=== PATIENT | female | born 1945 | race Caucasian/White ===

== ENCOUNTER 2021-10-15 10:34 | Outpatient (REF) | payer MEDICARE, SELFPAY ==
[2021-10-15 10:47] VITALS: BP 141/81; PULSE 83; RESP 16; TEMP 36.3; O2SAT 98
[2021-10-15 10:48] VITALS: BMI 32.9
== END 2021-10-15 10:35 | disposition home or self-care (01) ==
LOC: HO.MS 10:34
PROVIDERS: PCP Nurse Practitioner Family; Visit Provider Ophthalmology
PROC: (CPT 66821; principal; 2021-10-15 12:30)
DX: H26.492 Other secondary cataract, left eye (principal); Z83.511 Family history of glaucoma; J45.909 Unspecified asthma, uncomplicated; Z79.899 Other long term (current) drug therapy; Z88.2 Allergy status to sulfonamides; Z87.891 Personal history of nicotine dependence
CPT/HCPCS: 66821

== ENCOUNTER 2024-02-10 10:37 | Outpatient (AMB) | payer MEDICARE, SELFPAY ==
--- NOTE | 2024-02-10 10:45 | AM.OFFWIN_ITS ---
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, Records in chart Intake Note: pt is here to get a refill for her inhaler pt says she has a chest cold and needs it refilled she has [employer] appt with Dr Alcala 09/16 the inhaler she needs refilled is albuterol sulfate HFA 90 mcg Allergies Sulfa (Sulfonamide Antibiotics) [SULFA (SULFONAMIDE ANTIBIOTICS)] Allergy (Unknown, Unverified 02/10/24 11:10) UNKNOWN Medication List - Last Reconciled 02/10/24 by Regis Cardenas MD albuterol sulfate 90 mcg/actuation 2 puffs inhalation Q6H atorvastatin 40 mg PO DAILY citalopram 20 mg PO DAILY lorazepam mg PO lorazepam 1 mg PO DAILY PRN 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 patient is in between primary care providers. She has reactive airway disease and uses albuterol. She is out of the medication and would like a refill. Physical Exam Vital Signs: Last Vital Signs Temp 98.3 F 02/10/24 10:46 Pulse 60 02/10/24 10:46 BP 118/72 02/10/24 10:46 Pulse Ox 98 02/10/24 10:46 Oxygen Delivery Method Room Air 02/10/24 10:46 BMI result Body Mass Index 32.1 Const General: cooperative and healthy appearing Nutritional Appearance: well nourished Orientation/consciousness: patient oriented x3 Limitations: no limitations HEENT Head: Yes normal to inspection Eyes General: appearance normal, both eyes and all related structures Neck Neck: Yes normal visual inspection Chest Chest palpation & inspection: normal palpation of entire chest wall Resp Effort & Inspection: normal respiratory effort Neuro General: patient oriented x3 Assessment & Plan Assessment & Plan (1) Reactive airway disease: Code(s): J45.909 - Unspecified asthma, uncomplicated Plan: Albuterol prescription called in. Medications: New albuterol sulfate 90 mcg/actuation 2 puffs inhalation Q6H 6.7 grams 0RF Coding Level of Care Code Est Pt Level 3 (05251) Diagnoses Reactive airway disease J45.909
[2024-02-10 10:46] VITALS: BP 118/72; PULSE 60; TEMP 36.8; O2SAT 98; BMI 32.1
== END 2024-02-10 11:42 | disposition home or self-care (01) ==
PROVIDERS: Visit Provider Internal Medicine
DX: J45.909 Unspecified asthma, uncomplicated (principal)
CPT/HCPCS: 99203

== ENCOUNTER 2024-10-25 09:51 | Outpatient (AMB) | payer MEDICARE, SELFPAY ==
[2024-10-25 10:03] VITALS: BP 110/70; PULSE 73; O2SAT 99; BMI 31.5
--- NOTE | 2024-10-25 10:03 | A.OFFPC_ITS ---
Vital Signs 10/25/24 10:03 Height 5 ft 2 in Weight 172 lb BMI 31.5 BP 110/70 Blood Pressure Location Rt brachial Position Sitting Pulse 73 Pulse Source Pulse Oximeter Pulse Oximetry (%) 99 Oxygen Delivery Method Room Air Intake Visit Reasons: New Patient to est care/c/o Lt ear blocked Intake Note: Pt is here today as a New Patient to est care/c/o Lt ear blocked Allergies Sulfa (Sulfonamide Antibiotics) [SULFA (SULFONAMIDE ANTIBIOTICS)] Allergy (Unknown, Unverified 10/25/24 10:26) UNKNOWN Medication List - Last Reconciled 10/25/24 by Michelle Alcala MD albuterol sulfate 90 mcg/actuation 2 puffs inhalation Q6H atorvastatin 40 mg PO DAILY citalopram 20 mg PO DAILY cyclobenzaprine 10 mg PO BEDTIME ibuprofen 800 mg PO BID PRN lorazepam mg PO Tobacco use date assessed: 10/25/24 Fall risk assessment: No Falls in past year Last assessed Fall Risk: 10/25/24 Dental Screening Dental Screen Date: 10/25/24 Did you have a dental visit in the last 12 months?: Yes Did you have a dental problem in the last 6 months where you did not have access to dental care?: No Was dental information given to patient?: Patient has dentist HPI HPI Comments History of Present Illness Details The patient is a 79-year-old female, new to practice , presenting with complaints of left ear blockage and accompanying nasal congestion predominantly on the left side, especially upon waking in the morning. These symptoms have been intermittent for approximately one month. The patient also describes episodes of balance disturbance, especially when changing positions. She reports taking precautionary measures when rising from a seated position to avoid dizziness. The patient denies any associated vertigo when turning in bed or any sensation of room spinning. Has Bronchial asthma, she uses Albuterol without steroids , and reports no recent exacerbations. 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 The patient also mentioned receiving MRI scans to manage her back condition. She has been on atorvastatin for dyslipidemia and takes citalopram regularly for anxiety. Additionally, she has a known allergy to sulfa drugs from childhood, though she has not had any recent reactions. [facility] Medical History (Updated 11/01/24 @ 02:29 by Michelle Alcala MD) Mild intermittent asthma Generalized anxiety disorder Dyslipidemia Lumbar degenerative disc disease Surgical History (Updated 10/25/24 @ 10:41 by Michelle Alcala MD) Hx of cataract surgery Hx of tubal ligation Hx of cervical spine surgery Family History (Updated 10/25/24 @ 10:43 by Michelle Alcala MD) Father Leukemia Mother Nephrolithiasis Brother Bronchial asthma Social History Housing: House Patient Tobacco Use Status: Former Tobacco user e-Cigarette/Vaping Use: Never Used service: No Current occupational status: retired Cognitive needs: No Hearing needs: Yes Vision needs: Yes Questionnaire PHQ-9 Over the last 2 weeks, how often have you been bothered by any of the following problems? 1. Little interest or pleasure in doing things: not at all 2. Feeling down, depressed, or hopeless: not at all 3. Trouble falling or staying asleep, or sleeping too much: not at all 4. Feeling tired or having little energy: not at all 5. Poor appetite or overeating: not at all 6. Feeling bad about yourself - or that you are a failure or have let yourself or your family down: not at all 7. Trouble concentrating on things, such as reading the newspaper or watching television: not at all 8. Moving or speaking so slowly that other people could have noticed. Or the opposite - being so fidgety or restless that you have been moving around a lot more than usual: not at all 9. Thoughts that you would be better off or of hurting yourself in some way: not at all Total score: 0 Depression Screening Interpretation: Negative Depression Screening Done: Yes 66823 - PHQ-9 Billing: Yes Source: Developed by Drs. Hubert Worley, Jenny Woodard, Moe Dixon and colleagues, with an educational kami from [employer] Thrive Questionnaire Date Thrive assessed: 10/25/24 I am a: Patient What is your living situation today?: I have a steady place to live Within the past 12 months, did the food you bought not last and you didn't have the money to get more?: Never true Within the past 12 months, did you worry whether your food would run out before you got money to buy more?: Never true Do you have trouble paying for medicines?: No Do you have trouble getting transportation to medical appointments?: No Do you have trouble paying your heating and electricity bill?: No Do you have trouble taking care of your child, family member or friend?: No Do you have trouble with day-to-day activities such as bathing, preparing meals, shopping, managing finances, etc.?: No Are you currently unemployed and looking for a job?: No Are you interested in more education?: No THRIVE Score: 0 TRACY-7 AMB Questionnaire TRACY-7 Date TRACY - 7 assessed: 10/25/24 Feeling nervous, anxious, or on edge: 0 = Not at all Not being able to stop or control worryin = Not at all Worrying too much about different things: 0 = Not at all Trouble relaxin = Not at all Being so restless that it is hard to sit still: 0 = Not at all Becoming easily annoyed or irritable: 0 = Not at all Feeling afraid as if something awful might happen: 0 = Not at all Total TRACY-7 score (0-4 normal; 5-9 mild; 10-14 moderate; 15-21 severe): 0 Source: Developed by Drs. Hubert Worley, Jenny Woodard, Moe Dixon and colleagues, with an educational kami from [employer] TRACY-7 Assessment Billing TRACY-7 Assessment Tool: TRACY-7 Assessment 80210 ACT Questionnaire In the past 4 weeks, how much of the time did your asthma keep you from getting as much done at work, school or at home?: None of the time During the past 4 weeks, how often have you had shortness of breath?: Not at all During the past 4 weeks, how often did your asthma symptoms wake you up at night or earlier than usual in the morning?: Not at all During the past 4 weeks, how often have you had to use your rescue inhaler or nebulizer medication?: Once a week or less How would you rate your asthma control during the past 4 weeks?: Well controlled ACT Interpretation: Negative Score: 23 Review of Systems Const Denies body aches, Denies fatigue, Denies fever(s), Denies headache(s) and Denies weakness Eyes Denies change in vision, Denies eye discharge and Denies itchy eyes ENT Denies headache(s), Reports hearing loss (left ear feels blocked ), Reports nasal congestion, Denies post nasal drip, Denies sinus pain and Denies sore th roat Card Denies chest pain, Denies lightheadedness, Denies palpitations and Denies dyspnea Resp Denies chest congestion, Denies cough, Denies dyspnea and Denies wheezing GI Denies abdominal pain, Denies change in bowel habits and Denies heartburn Denies hematuria, Denies urinary frequency, Denies dysuria and Denies urinary urgency Musc Reports no additional complaints Skin/Breast Denies breast pain, Denies breast mass, Denies lesions and Denies rash Neuro Denies headache(s) and Denies weakness Psych Reports no additional complaints Endo Denies fatigue, Denies polydipsia, Denies polyuria and Denies palpitations Arnold/Lymph Denies easy bruising Aller/Immun Denies itchy eyes, Denies seasonal rhinorrhea and Denies wheezing Physical exam (Primary Care) Vital Signs: Last Vital Signs Pulse 73 10/25/24 10:03 BP 110/70 10/25/24 10:03 Pulse Ox 99 10/25/24 10:03 Oxygen Delivery Method Room Air 10/25/24 10:03 BMI result Body Mass Index 31.5 Tobacco/Smoking Status: Tobacco use Status Tobacco use date assessed 10/25/24 10/25/24 10:14 Patient Tobacco Use Status Former Tobacco user 10/25/24 10:14 e-Cigarette/Vaping Use Never Used 10/25/24 10:14 PHQ-9: PHQ-9 Score PHQ-9: Total score 0 10/25/24 11:02 Depression Screening Interpretation: Negative Thrive Assessment: Date of Thrive Assessment Date Thrive assessed 10/25/24 10/25/24 10:14 Const General: comfortable, no acute distress and alert Orientation/consciousness: patient oriented x3 Limitations: no limitations HENMT Ears: external ears normal, TM's normal bilaterally and EAC's normal General nose exam: Normal external nose present and No nasal discharge present Mouth: Normal oral and palatal mucosa present, oropharynx normal and moist mucous membranes Eyes General: appearance normal, both eyes and all related structures Conjunctivae: conjunctivae normal Sclerae: sclerae normal Pupils: Equal, round and reactive pupils present EOM: EOMs intact bilaterally Neck Neck: Yes full ROM, Yes no lymphadenopathy and Yes supple Resp Effort & Inspection: normal respiratory effort and able to speak in complete sentences Auscultation: clear to auscultation bilaterally Cardio Rate: regular rate Rhythm: regular rhythm Heart sounds: S1 normal heart sound present and S2 normal heart sound present GI Palpation (GI): Soft to palpation, nontender and no masses Auscultation: normal bowel sounds Back/Spine/Pelvis Back: No back tenderness Skin General skin exam: no rashes or lesions noted Neuro General: patient oriented x3, gait normal, tone normal, moves all extremities, Normal light touch and pain sensation and no focal motor deficits Cranial nerves: Yes CN's II-XII intact bilaterally and Yes Equal, round and reactive pupils present Cognition (Neuro): normal cognition Extrem General: Yes full ROM, Yes no joint enlargement, Yes no clubbing, cyanosis or edema and Yes no calf tenderness Psych Appearance: grossly normal and well kempt Mental Status: mental status grossly normal Speech and movement: Normal speech and movement present Affect: normal affect Attitude: cooperative Thought process: Normal thought process present Thought content: Normal thought content present Immunizations pneumoc 20-jonathon conj-dip cr(PF) 0.5 mL IM syringe Performing Provider: Michelle Alcala MD Performing Location: [facility] Administered by: Rhonda Yanez CMA on 10/25/24 11:01 Dose Route Admin Location Dispensed Lot Number Expiration Date [employer] Operator 0.5 mL IM Left Deltoid 0.5 mL [id number] 03/23/26 6150-8879-21 [employer] VIS Given Date VIS Provided VIS Publication Date 10/25/24 Single Vaccine 21 Eligibility Eligibility Date Funding Source Not [facility] Eligible 10/25/24 Private Coding Level of Care Code New Pt Level 3 (20600) Complex EM visit Add On G2211 Diagnoses Benign paroxysmal positional vertigo, unspecified laterality H81.10 Laterality: unspecified laterality Mild intermittent asthma without complication J45.20 Asthma complication type: uncomplicated Generalized anxiety disorder F41.1 Dyslipidemia E78.5 Degeneration of intervertebral disc of lumbar region, unspecified whether pain present M51.369 Disc-related pain type: unspecified whether pain present Additional Codes PHQ-9 - 49123 - PHQ-9 Billing: Yes ([id number]) TRACY-7 Assessment Billing - TRACY-7 Assessment Tool: TRACY-7 Assessment 95836 ([id number]) Asthma Control Questionnaire - ACT Interpretation: Negative ([id number]) Assessment & Plan Assessment & Plan (1) Benign positional vertigo: Code(s): H81.10 - Benign paroxysmal vertigo, unspecified ear Qualifiers: Laterality: unspecified laterality Qualified Code(s): H81.10 - Benign paroxysmal vertigo, unspecified ear (2) Mild intermittent asthma: Code(s): J45.20 - Mild intermittent asthma, uncomplicated Category: Medical Qualifiers: Asthma complication type: uncomplicated Qualified Code(s): J45.20 - Mild intermittent asthma, uncomplicated (3) Generalized anxiety disorder: Code(s): F41.1 - Generalized anxiety disorder Category: Medical (4) Dyslipidemia: Code(s): E78.5 - Hyperlipidemia, unspecified Category: Medical (5) Lumbar degenerative disc disease: Comment: sees [facility] , Dr Green , gets steroid epidural steroid injections Code(s): M51.369 - Other intervertebral disc degeneration, lumbar region without mention of lumbar back pain or lower extremity pain Category: Medical Qualifiers: Disc-related pain type: unspecified whether pain present Qualified Code(s): M51.369 - Other intervertebral disc degeneration, lumbar region without mention of lumbar back pain or lower extremity pain Plan - Recommend Jemma D or Claritin D to manage nasal congestion as an [id number] option. - Referral for physical therapy to perform the Juan Ramon maneuver if symptoms persist indicating potential benign paroxysmal positional vertigo. - Continue Albuterol for asthma management. Discussed the absence of steroid inhaler use. - Continue atorvastatin for dyslipidemia. - currently followed at [facility] for her back pain - Refilled prescription for citalopram, with reinforcement to continue regular dosing for anxiety management. - Administer Prevnar 20 for pneumococcal vaccination. Discussed the need for an additional dose of the shingles vaccine and suggested RSV vaccination. Patient was informed and verbally consented to the use of an ambient scribe for clinic note documentation during this visit. Orders: Orders Aspartate Amino Transferase 10/25/24 E78.5 - Hyperlipidemia, unspecified, F41.1 - Generalized anxiety disorder, J45.20 - Mild intermittent asthma, uncomplicated, M51.369 - Other intervertebral disc degeneration, lumbar region without mention of lumbar back pain or lower extremity pain, Z13.1 - Encounter for screening for diabetes mellitus, Z78.0 - Asymptomatic menopausal state PT Evaluation and Treatment 10/25/24 H81.10 - Benign paroxysmal vertigo, unspecified ear Alanine Aminotransferase 10/25/24 E78.5 - Hyperlipidemia, unspecified, F41.1 - Generalized anxiety disorder, J45.20 - Mild intermittent asthma, uncomplicated, M51.369 - Other intervertebral disc degeneration, lumbar region without mention of lumbar back pain or lower extremity pain, Z13.1 - Encounter for screening for diabetes mellitus, Z78.0 - Asymptomatic menopausal state Basic Metabolic Panel Fasting 10/25/24 E78.5 - Hyperlipidemia, unspecified, F41.1 - Generalized anxiety disorder, J45.20 - Mild intermittent asthma, uncomplicated, M51.369 - Other intervertebral disc degeneration, lumbar region without mention of lumbar back pain or lower extremity pain, Z13.1 - Encounter for screening for diabetes mellitus, Z78.0 - Asymptomatic menopausal state Lipid Panel 10/25/24 E78.5 - Hyperlipidemia, unspecified, F41.1 - Generalized anxiety disorder, J45.20 - Mild intermittent asthma, uncomplicated, M51.369 - Other intervertebral disc degeneration, lumbar region without mention of lumbar back pain or lower extremity pain, Z13.1 - Encounter for screening for diabetes mellitus, Z78.0 - Asymptomatic menopausal state Vitamin D 25-OH Total 10/25/24 E78.5 - Hyperlipidemia, unspecified, F41.1 - Generalized anxiety disorder, J45.20 - Mild intermittent asthma, uncomplicated, M51.369 - Other intervertebral disc degeneration, lumbar region without mention of lumbar back pain or lower extremity pain, Z13.1 - Encounter for screening for diabetes mellitus, Z78.0 - Asymptomatic menopausal state Pneumococcal 20 Immunization 10/25/24 Z23 - Encounter for immunization
== END 2024-10-25 11:04 | disposition home or self-care (01) ==
PROVIDERS: PCP Internal Medicine; Visit Provider Internal Medicine
DX: H81.10 Benign paroxysmal vertigo, unspecified ear (principal); J45.20 Mild intermittent asthma, uncomplicated; F41.1 Generalized anxiety disorder; E78.5 Hyperlipidemia, unspecified; M51.369 Other intervertebral disc degeneration, lumbar region without mention of lumbar back pain or lower extremity pain

== ENCOUNTER → 2024-10-25 09:51 | Outpatient (BNVA) | payer MEDICARE, SELFPAY | PROVIDERS: Visit Provider Internal Medicine | DX: H81.10 Benign paroxysmal vertigo, unspecified ear (principal); Z23 Encounter for immunization; J45.20 Mild intermittent asthma, uncomplicated; F41.1 Generalized anxiety disorder; E78.5 Hyperlipidemia, unspecified; M51.369 Other intervertebral disc degeneration, lumbar region without mention of lumbar back pain or lower extremity pain | CPT/HCPCS: 90471; 90677; 96127; 96160; 99202 ==

== ENCOUNTER 2024-12-10 08:46 | Outpatient (RCR) | payer MEDICARE, SELFPAY ==
[2024-12-10 08:53] VITALS: BP 108/70
--- NOTE | 2024-12-10 10:01 | MHC.PT.EP ---
[facility] [place] Office [place] Office [place] Office [address] Momo Rodriguez [address] [phone] F: [phone] F: [phone] F: [phone] F: [phone] Physical Therapy Plan of Care Date of Evaluation: Date of Surgery: Diagnosis: BPPV Assessment: 79 y/o female referred to PT with BPPV. Reports dizziness all the time, some days are worse than others. Describes dizziness 'like everything is swirling' and 'my head feels full on the top and it feels weird. It is provoked by moving head quickly side to side, bending, and standing up quickly. Sx last for a few seconds. Of note, she has L LE weakness d/t DDD and is managed by orthopedics, but states this has also effected her balance. Examination shows normal smooth pursuits/ saccades, impaired static and dynamic balance, negative VBI, 17/24 DGI, and she was negative for BPPV. At this time, she presents with vestibular hypofunction and she will benefit from PT to address balance especially with head turns. Also recommended she f/u with MD and possibly ENT as her L ear feels clogged, full, and has whooshing sound. We will trial every other week to progress HEP and also pt is traveling soon. 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 Manual therapy to restore motion and function. Therapeutic exercise to improve strength and flexibility. Neuromuscular re-education for posture and balance. Therapeutic activities to return to functional activities of daily living. Electronically signed by: Rand Leigh PT Please sign and return to therapist. Thank you for your referral.
--- NOTE | 2025-01-03 13:28 | MHC.PT.DC ---
[facility] [place] Office [place] Office [place] Office [address] Momo Rodriguez [address] [phone] F: [phone] F: [phone] F: [phone] F: [phone] Physical Therapy Discharge Report Diagnosis: BPPV Date of Surgery: Date of Evaluation: 12/10/24 Date of Discharge: 01/03/25 Treatments to Date: 1 Cancellations to Date: 0 No Shows to Date: 1 Discharge Status: Discharge Summary: Pt attended initial evaluation and was negative for BPPV. However she demonstrates impaired balance. PT was recommended for balance as well as f/u wiht ENT d/t ear feeling clogged with 'whooshing'. She did not attend further visits and chart is d/c at this time. Electronically signed by: Rand Leigh PT Please sign and return to therapist. Thank you for your referral.
== END 2025-01-03 13:28 | disposition home or self-care (01) ==
LOC: HO.PTCHIC 08:46
PROVIDERS: PCP Internal Medicine; Visit Provider Internal Medicine
DX: H81.10 Benign paroxysmal vertigo, unspecified ear (principal)
CPT/HCPCS: 97112; 97162

== ENCOUNTER 2024-12-20 08:16 | Outpatient (REF) | payer MEDICARE, SELFPAY ==
[2024-12-20 11:08] LABS: Alanine Aminotransferase 17 U/L (0-31); Anion Gap 11 (12-20); Aspartate Amino Transferase 23 U/L (5-31); Blood Urea Nitrogen 10 mg/dL (9-16); Calcium 9.8 mg/dL (8.4-10.2); Carbon Dioxide 25 mmol/L (22-29); Chloride 111 mmol/L (96-108); Cholesterol 149 mg/dL (<200); Estimated Glomerular Filt Rate 56; Glucose Fasting 126 mg/dL (60-99); HDL Cholesterol 39 mg/dL (>40); LDL Cholesterol Calculated 92 mg/dL (<100); Potassium 4.2 mmol/L (3.3-5.1); Sodium 143 mmol/L (135-145); Triglycerides 93 mg/dL (<150); Vitamin D 25-OH Total 22.9 ng/mL (>30)
== END 2024-12-20 08:17 | disposition home or self-care (01) ==
LOC: HO.HMGCLDS 08:16
PROVIDERS: PCP Internal Medicine; Visit Provider Internal Medicine
DX: J45.20 Mild intermittent asthma, uncomplicated (principal); F41.1 Generalized anxiety disorder; E78.5 Hyperlipidemia, unspecified; M51.369 Other intervertebral disc degeneration, lumbar region without mention of lumbar back pain or lower extremity pain; Z13.1 Encounter for screening for diabetes mellitus; Z78.0 Asymptomatic menopausal state
CPT/HCPCS: 36415; 80048; 80061; 82306; 84450; 84460

== ENCOUNTER → 2024-12-29 07:51 | Outpatient (BNVA) | payer MEDICARE, SELFPAY | PROVIDERS: PCP Internal Medicine; Visit Provider Internal Medicine | DX: E78.5 Hyperlipidemia, unspecified (principal); E55.9 Vitamin D deficiency, unspecified; J45.20 Mild intermittent asthma, uncomplicated; F41.1 Generalized anxiety disorder; R73.01 Impaired fasting glucose | CPT/HCPCS: 83036; 96127; 99212 ==

== ENCOUNTER 2025-06-15 14:14 | Outpatient (AMB) | payer MEDICARE, SELFPAY ==
--- OUTSIDE RECORDS SUMMARY | 2025-04-11 06:40 | XMS_ITS ---
Author Organization [facility] Address [address] [place] [address] [place] [address] Care Team Providers Care Recapper Name Role Phone Cari LEWIS, Michelle Primary Care Provider Genesis Cordero Jr, Harman Nava REASON FOR VISIT colon screening Encounters Encounter Location Date Provider Diagnosis [facility] [address] [place] [address] [place] [address] 04/11/2025 Harman oCrdero Jr Plan Of Treatment No Information Progress Notes * SHAHIDA CLIFTONANDOB: (79 yo F)Acc No.[id number]:04/11/2025 Progress Notes Patient: SHAHIDA LEVI Provider: Thelma Cordero MD :1945 A ge:79 Y S ex:Female Date:04/11/2025 Address:[facility] [address] [id number] Pcp:Michelle Alcala MD Subjective: * Chief Complaints: * 1 . Colon screening. * Medical History: Objective: * Vitals: Assessment: Plan: * Treatment: * * The named appointment provid er may or may not be the originator of this progress note, and it is not deemed complete until electronically signed by the appointment provider. Sign off status: Pending * Provider: Thelma Cordero MD Date: 0 04/11/2025 Generated for Printi ng/Faxing/eTransmitting on: 0 06/15/2025 02:55 PM EDT
--- OUTSIDE RECORDS SUMMARY | 2025-06-15 14:55 | XMS_ITS | Patient Health Record ---
[facility] Kimberly Guzmanley Address [address] [place] [address] Care Team Providers Care Trekking Guide Name Role Phone Cari LEWIS, Michelle Meeks Primary Care Provider Un available Laura Jarrell Unavailable [phone] Allergies Allergen (clinical drug ingredient) Drug/Non Drug Allergy documented on EMR Reaction Allergy Type Onset Date Status sulfamethoxazole / trimethoprim Bactrim can't remember Drug Allergy Active Reason For Referral No Information Medications Medication SIG (Take, Route, Frequency, Duration) Notes Start Date End Date Status Flovent HFA 110 MCG/ACT 1 puff Inhalatio n Twice a day Unknown Simvastatin 40 MG 1 tablet every eveni ng Orally Once a day; Duration: 30 day(s) Unknown Citalopram Hydrobromide 20 MG 1 tablet Orally Once a day; Duration: 30 day(s) Unknown Tricor 145 MG 1 tablet Orally Once a day; Duration: 30 day(s) Unknown Citalopram & Diet Manage Prod Active Atorvastatin Calcium 40 MG 1 tablet Oral ly Once a day Active Albuterol Sulfate HFA 108 (90 Base) MCG/ACT 2 puffs as needed Inhalation every 4 hrs Unknown Ibuprofen 200 MG 1 tablet as needed Orally every 6 hrs Unknown Vitamin D 1000 UNIT 1 tablet Orally Once a day; Duration: 30 day(s) Unknown Flonase 50 MCG/ACT 2 sprays Nasally Onc e a day; Duration: 30 day(s) Unknown Social History Tobacco Use: Social History Observation Description Date Details (start date - stop date) Never Smoker NA - NA Tobacco use other than smoking: Question Answer Notes Are you an other tobacco user? No Tobacco Control (Standard) Question Answer Notes Tobacco use: Nonsmoker Additional Findings: Tobacco non-user Current no nsmoker AUDIT-C (Standard) Question Answer Notes Did you have a drink contain ing alcohol in the past year? Yes How often did you have a dri nk containing alcohol in the past year? Declined to specify (0 point) How many drinks did you have on a typical day when you were drinking in the past year? Declined to specify (0 point) How often did you have six o r more drinks on one occasion in the past year? Declined to specify (0 point) Points 0 Interpretation Negative Problems Problem Type SNOMED Code ICD Code Onset Dates Problem Status W/U Status Risk Notes Problem Acquired hammer toe of right foot ([id number]) Other hammer toe(s) (acquired), right foot (M20.41) Active confirmed Problem Localized, primary osteoarthritis of the ankle and/or foot (235962707) Arthritis of joint of lesser toe, right (M19.071) Active confirmed Vital Signs Blood pressure diastolic 90 mm Hg 04/28/2025 Height 5ft 1in in 04/28/2025 Blood pressure systolic 128 mm Hg 04/28/2025 Weight 160 lbs 04/28/2025 BMI 30.23 kg/m2 04/28/2025 Encounters Encounter Location Date Provider Diagnosis [facility] [address] [phone] 04/28/2025 Laura Jarrell Pain in right toe(s) M79.674 ; Other hammer toe(s) (acquired), right foot M20.41 ; Arthritis of joint of lesser toe, right M19.071 and Subluxation of metatarsophalangeal joint of toe, initial encounter S93.149A [facility] [address] [phone] 02/17/2025 Laura Jarrell Assessments Encounter Date Diagnosis (ICD Code) Assessment Notes Treatment Notes Treatment Clinical Notes Section Notes 04/28/2025 Pain in right toe(s) (ICD-10 - M79.674) 04/28/2025 Other hammer toe(s) (acquired), right foot (ICD-10 - M20.41) 04/28/2025 Arthritis of joint o f lesser toe, right (ICD-10 - M19.071) 04/28/2025 Subluxation of metatarsophalangeal joint of toe, initial encounter (ICD-10 - S93.149A) Plan Of Treatment Pending Test Test Name Order Date X ray : Foot, right 3V 04/28/2025 Insurance Providers Payer Name Payer Address Payer Phone Subscriber Number Group Number Insured Name Patient Relationship to Insured Coverage Start Date Coverage End Date Medicare National [employer] [address] [place] [address] [id number] [place], [place] Self - patient is the insured 2 [employer] [address] [place] [address] [id number] [place], [place] Self - patient is the insured Medical (General) History Medical History History ICD Code hyperlipidemia depression anxiety irritable bowel syndrome cataracts asthma - mild intermittent neck pain pneumonia asthma Back,Hip,and Knee pain CAD (Cholesterol) Depression Measles Mumps Chicken pox Surgical History Surgery Date(Month/Year) cervic surgery
--- OUTSIDE RECORDS SUMMARY | 2025-06-15 14:55 | XMS_ITS | Clinical Summary ---
Author Organization [facility] Address [address] [place] [phone] Phone Care Team Providers Care Lockstitch Collar Setter Name Role Phone Harman Cordero MD Unavailable Unknown, Unknown Primary Care Provider Genesis brower Allergies Active Allergy Reactions Criticality Noted Date Comments Sulfa (Sulfonamide Antibiotics) Unknown 09/25 ?? reaction Medications mometasone (ELOCON) 0.1 % ointment Apply 0.1 application topically 2 (two) times a day. 1 09/25/20 17 Active albuterol 2.5 mg /3 mL (0.083 %) nebulizer solutionIndication s:Mild asthma Take 3 mL (2.5 mg total) by nebulization every 4 (four) hours as needed. 150 mL 10/23/20 21 Active albuterol 90 mcg/actuation inhalerIndications :Mild asthma Inhale 2 puffs into the lungs every 4 (four) hours as needed for wheezing. 18 g 1 10/23/20 21 Active atorvastatin (LIPITOR) 40 MG tabletIndications: Mixed hyperlipidemia TAKE 1 TABLET BY MOUTH EVERY DAY 90 tablet 3 09/02/20 23 Active citalopram (CELEXA) 20 MG tabletIndications: Moderate episode of recurrent major depressive disorder take 1 tablet by mouth every day 90 tablet 3 01/07/20 24 Active cyclobenzaprine (FLEXERIL) 10 MG tabletIndications: Chronic bilateral low back pain without sciatica Take 1 tablet (10 mg total) by mouth nightly at bedtime as needed. 30 tablet 3 03/31/20 24 Active ibuprofen (ADVIL,MOTRIN) 800 MG tabletIndications: Chronic bilateral low back pain without sciatica Take 1 tablet (800 mg total) by mouth 2 (two) times a day as needed for pain (specific location in comments). 90 tablet 03/31/20 24 Active LORazepam (ATIVAN) 0.5 MG tabletIndications: Generalized anxiety disorder Take 1 tablet po 3 x week prn 12 tablet 3 03/31/20 24 Active Active Problems Problem Noted Date Diagnosed Date Myalgia 10/30/2018 Lumbosacral spondylosis without myelopathy 03/19 Obesity (BMI 35.0-39.9 without comorbidity) 06/2018 Sacroiliitis, not elsewhere classified 8 Recurrent major depressive disorder, in full rem ission 10/13/2017 Elevated triglycerides with high cholesterol Essential hypertension 10/13/2017 Mild asthma 10/13/2017 Mixed hyperlipidemia 10/13/2017 Chronic bilateral low back pain without sciatica 10/13/2017 Generalized anxiety disorder 10/13/2017 Immunizations Immunization Administration Dates Next Due COVID-19 (Pre-09/15) Moderna Vaccine, mRNA, PF 02/19/2021,01/22/2021 DTaP 06/23/2019 Hepatitis A, Adult 01/06/2019 Influenza High-Dose Quadriva lent Preservative Free IM 09/20/2022,09/10/2021 Influenza High-Dose Trivalen t Preservative Free IM 09/15/2019,08/19/2018,09/21/2017,10/15,09/08/2015,08/25/2014,08/16/2014 Influenza Quadrivalent Prese rvative Free IM 09/07/2020 Influenza Trivalent w/ Preservative IM 1 Influenza, Unspecified Formulation 09/05/2010, Pneumococcal conjugate PCV13 10/26/2015 Pneumococcal polysaccharide PPSV23 05/29/2021 RSV Vaccine (monovalent, adjuvanted) 11/10/2023 Td (adult) 5 Lf Tetanus Toxo id, PF, Adsorbed 04/06/2018 Typhoid, ViCPs 02/04/2019 Varicella 01/31/2017 Zoster live 11/08/2013 Zoster recombinant 01/26/2023 Family History Medical History Relation Comments Parkinson's disease Brother No Known Problems Daughter 1 No Known Problems Daughter 2 Cervical cancer Daughter 3 Leukemia Father Throat cancer Maternal Aunt smoker sepsis Mother Relation Status Comments Brother Alive Daughter 1 Alive Daughter 2 Alive Daughter 3 Alive Father (Age 73) Maternal Aunt Mother (Age 42) Social History Tobacco Use Types Packs/Day Years Used Date Smoking Tobacco: Former Cigarettes 0.3 30 0 01/06/1963 - 10/13/1990 Smokeless Tobacco: Never Tobacco Cessation:Counseling Given: Not Answered Alcohol Use Standard Drinks/Week Comments Yes 0 (1 standard drink = 0.6 oz pure alcohol) 1-2 drinks, 2-4 x month, wine or rare martini Education Answer Date Recorded Are you interested in more education? Not on major e 03/20/2023 Are you concerned about learning? Not on file 03/20/2023 No 03/20/2023 No 03/20/2023 Digital Access Answer Date Recorded No 04/21/2023 No 04/21/2023 Reliable internet access at home? Not on file 04/21/2023 Device with a working camera? Not on file Intimate Partner Violence Answer Date R ecorded Denied Basic Needs Not on file 09/16/2023 In the past 12 months have y ou been in a relationship with a person who hurts, threatens, or tries to control you? No 09/16/2023 Worried food would run out Not on file 09/16 In the past 12 months have y ou been in a relationship with a person who hurts, threatens, or tries to control you? No 09/16/2023 Comments Unknown Sex and Gender Information Value Date Recorded Sex Assigned at Not on file Legal Sex Female 10:06 PM EDT Gender Identity Not on file Sexual Orientation Not on file Last Filed Vital Signs Vital Sign Reading Time Taken Comments Blood Pressure 124/80 09/23/2023 11:43 AM EDT Pulse 81 09/23/2023 10:47 AM EDT Temperature 35.9 C (96.6 F) 09/20/2022 9:20 AM EDT Respiratory Rate 16 09/23/2023 10:4 7 AM EDT Oxygen Saturation 98% 09/23/2023 10: 47 AM EDT Inhaled Oxygen Concentration - - Weight 79.7 kg (175 lb 12.8 oz) 023 10:47 AM EDT Height 154.3 cm (5' 0.75 ) 09/23/2023 1 0:47 AM EDT Body Mass Index 33.49 09/23/2023 10:47 AM EDT Plan of Treatment Health Maintenance Due Date Last Done Comments SMOKING Hx and SMOKELESS TOBACCO SCREENING 1958 ZOSTER VACCINES (3 of 3) 03/23/2023 01/26/2023, 10/24 BLOOD PRESSURE 03/23/2024 09/23/2023 COVID-19 VACCINE ( season) 2024 12/17/2021, 02/19/2021, 01/22/2021 DEPRESSION SCREENING 09/16/2024 09/16/2023 Adult Td,Tdap Booster 04/06/2028 04/06/2018 LIPID PANEL 09/15/2028 09/15/2023, 08/25, 05/29/2021, Additional history exists HEPATITIS A VACCINES Aged Out 01/06/2019 No long er eligible based on patient's age to complete this topic HEPATITIS C SCREENING Completed 02/01/2020, 020 PNEUMOCOCCAL VACCINES (50+ years) Completed 05/29/2021, 10/26/2015 OSTEOPOROSIS SCREENING INITIAL (ONE-TIME) Completed 09/23/2023, 10/15/2017, 08/23/2014 RSV VACCINE Completed 11/10/2023 HIB VACCINES Aged Out No longer eligi ble based on patient's age to complete this topic MENINGOCOCCAL VACCINES (ACWY) Aged Out No longer eligible based on patient's age to complete this topic MENINGOCOCCAL VACCINES (B) Aged Out N o longer eligible based on patient's age to complete this topic Medical Devices Not on file Procedures Procedure Name Priority Date/Time Associated Diagnosis Comments BD DXA SCREENING Routine 09/23/2023 11:4 5 AM EDT Post-menopausal LIPID PANEL Routine 09/15/2023 9:58 AM EDT Mixed hyperlipidemia HEPATITIS C ANTIBODY, QUALITATIVE Routine 02/01/2020 11:58 AM EDT Liver function abnormality from Last 3 Months or Most Recently Relevant to Health Maintenance Results * (ABNORMAL) Lipid panel (09/15/2023 9:58 AM EDT) HDL 43 mg/dL [facility] Comment: Interpretation <40 mg/dL: Low HDL cholesterol (major risk factor for CHD) Greater than or equal to 60 mg/dL: High HDL cholesterol ( negative risk factor for CHD) HDL - cholesterol is affected by a number of factors, e.g. smoking, excerise, hormones, sex and age. CHOLESTEROL 192 0 - 240 mg/dL [facility] TRIGLYCERIDES 142 30 - 160 mg/dL [facility] LDL 121 50 - 129 mg/dL [facility] Comment: LDL levels in terms of risk for coronary heart disease: <100 mg/dL: Optimal 100-129 mg/dL: Near or above optimal 130-159 mg/dL: Borderline high 160-189 mg/dL: High >190 mg/dL: Very High CARDIAC RISK RATIO 4.5(H) 3.3 - 4.4 C [facility] Blood 09/15/2023 9:58 AM EDT 09/15/2023 10:02 AM EDT Daria Gutierrez NP LAB BLOOD ORDERABLES Final Resu lt Performing Organization Address City/[facility]/ZIP Co de Phone Number [address] [phone] * Hepatitis C antibody, qualitative (02/01/2020 11:58 AM EDT) Pathologist [facility] HCV NON-REACTIV E NON-REACTI VE [facility] Blood 02/01/2020 11:5 8 AM EDT 02/01/2020 12:01 PM EDT Daria Gutierrez NP LAB BLOOD ORDERABLES Final Resu lt Performing Organization Address City/[facility]/ZIP Co de Phone Number [address] [phone] * OUTSIDE BONE DENSITY SCREENING (10/15/2017) Pathologist [facility] BONE DENSITY SCREENING - EXTERNAL normal us Historical Provider HEALTH MAINTENANCE Final Result from Last 3 Months or Most Recently Relevant to Health Maintenance Insurance MEDICARE PART A & B [employer] SUPPLEMENT MEDICARE PART A & B [employer] MED[employer] SUPPLEMENT MEDICARE PART A & B [employer] MEDEX SUPPLEMENT MEDICARE PART A & B [employer] MED[employer] SUPPLEMENT MEDICARE PART A & B [employer] MED[employer] SUPPLEMENT MEDICARE PART A & B [employer]EX SUPPLEMENT MEDICARE PART A & B [employer] MEDEX SUPPLEMENT MEDICARE PART A & B [employer] SUPPLEMENT MEDICARE PART A & B [employer]EX SUPPLEMENT Care Teams Lockstitch Collar Setter Relationship Specialty Start Date End Date Unknown, Unknown, MD PCP - General 02/16/24 Harman Cordero MD [address] [place] [address] [place] [phone] Internal Medicine 09/20/22 Additional Source Comments The information contained in this document represents components of the legal health record. It is not the complete legal health record.[facility]
[2025-06-15 15:09] VITALS: BP 124/72; PULSE 82; TEMP 36.8; O2SAT 95; BMI 31.1
--- NOTE | 2025-06-15 15:09 | AM.OFFWIN_ITS ---
Intake Vital Signs 06/15/25 15:09 Height 5 ft 2 in Weight 170 lb BMI 31.1 BP 124/72 Blood Pressure Location Rt brachial Position Sitting Pulse 82 Pulse Source Pulse Oximeter Temp 98.2 F Temp Source Oral Pulse Oximetry (%) 95 Oxygen Delivery Method Room Air Intake Visit Reasons: EP-poison mildred rash Patient Tobacco Use Status: Former Tobacco user Certified Recreational Therapist Required: No Is last menstrual period known: No Post menopausal: Yes Patient : No Allergies Sulfa (Sulfonamide Antibiotics) (SULFA (SULFONAMIDE ANTIBIOTICS)) Allergy (Unknown, Verified 06/15/25 15:18) UNKNOWN Do you need a note to return to daycare/school/sports/work: No HPI HPI Comments History of Present Illness Details History - The patient is a 79-year-old female pr esenting with allergic contact dermatitis due to poison mildred or poison oak. - The rash began approximately one week ago and has been spreading despite efforts to keep the affected areas dry. - The patient reports severe itching and has noted the rash spreading to her underarm and back. - She has a history of severe allergic r eactions to similar exposures, which previously required hospitalization and treatment with prednisone. - Current interventions include daily sh owers, use of a specific soap for poison mildred, and frequent washing of clothes and sheets to prevent the spread of the allergen. - The patient is concerned about the sonido h spreading further and is seeking addit ional treatment options. Physical Exam General: Cooperative, healthy appearing, comfortable, no acute distress and well developed Orientation: Patient oriented x3 Limitations: No limitations Head: Normal to inspection Ears: Hearing grossly normal bilaterally Nose: Normal External nose present Face and sinus: Normal facial exam Eyes: Appearance normal, both eyes and all related structures Neck: Normal visual inspection and Yes full ROM Respiratory: Normal respiratory effort and able to speak in complete sentences. Skin: Linear erythematous raised rash Neuro: Patient oriented x3 [facility] Medical History Vitamin D deficiency Mild intermittent asthma Generalized anxiety disorder Dyslipidemia Lumbar degenerative disc disease Surgical History Hx of cataract surgery Hx of tubal ligation Hx of cervical spine surgery Family History Father Leukemia Mother Nephrolithiasis Brother Bronchial asthma Social History Housing: House Patient Tobacco Use Status: Former Tobacco user e-Cigarette/Vaping Use: Never Used Patient : No service: No Current occupational status: retired Cognitive needs: No Hearing needs: Yes Vision needs: Yes Review of Systems Const All systems reviewed & are unremarkable except as noted in HPI and below Physical Exam Vital Signs: Last Vital Signs Temp 98.2 F 06/15/25 15:09 Pulse 82 06/15/25 15:09 BP 124/72 06/15/25 15:09 Pulse Ox 95 06/15/25 15:09 Oxygen Delivery Method Room Air 06/15/25 15:09 BMI result Body Mass Index 31.1 Assessment & Plan Assessment & Plan (1) Contact dermatitis: Code(s): L25.9 - Unspecified contact dermatitis, unspecified cause Qualifiers: Contact dermatitis type: allergic Contact dermatitis trigger: non-food plants Qualified Code(s): L23.7 - Allergic contact dermatitis due to plants, except food Plan: Plan Patient was informed and verbally consented to the use of an ambient scribe for clinic note documentation during this visit. Allergic Contact Dermatitis Due To Poison Mildred - Prescribe triamcinolone cream to be applied twice daily to affected areas, avoiding the face and genitals. - Recommend continued use of specific soap for poison mildred and daily washing of clothes and sheets. - Advise taking Benadryl at night to alleviate itching. - Provide a prescription for 30 grams of triamcinolone with a refill option if needed. Medications: New triamcinolone acetonide 0.1% 1 appl topical BID 30 grams 1RF 14 days Coding Level of Care Code Est Pt Level 3 (69486) Diagnoses Allergic contact dermatitis due to plants, except food L23.7 Contact dermatitis type: allergic Contact dermatitis trigger: non-food plants
== END 2025-06-15 15:50 | disposition home or self-care (01) ==
PROVIDERS: PCP Internal Medicine; Visit Provider Physician Assistant
DX: L23.7 Allergic contact dermatitis due to plants, except food (principal)

== ENCOUNTER → 2025-06-15 14:14 | Outpatient (BNVA) | payer MEDICARE, SELFPAY | PROVIDERS: PCP Internal Medicine; Visit Provider Physician Assistant | DX: L23.7 Allergic contact dermatitis due to plants, except food (principal) | CPT/HCPCS: 99212 ==